=== PATIENT | male | born 1985 | race Caucasian/White ===

== ENCOUNTER 2019-11-04 10:16 | Inpatient (IN) | payer OTHER ==
[2019-11-04 10:58] VITALS: BMI 31.0
--- NOTE | 2019-11-04 11:30 | HP ---
Screened but not Admitted - Documentation of Visit Screened but not Admitted: Yes Left Prior to Completion of Assessment: Yes Insurance Authorization Denied: No Patient Does Not Meet Criteria for Admission: No Alternative Treatment/Detention Info Provided: No Additional Information/Explanation: Patient stated he was not ready to enter treatment due to an argument with his significant other. He was offered future treatment if he so chooses. Dr. May
--- NOTE | 2019-11-04 11:58 | HP ---
CIWA Score Nausea/Vomitin Muscle Tremors: 3 Anxiety: 3 Agitation: 3 Paroxysmal Sweats: 1-Minimal Palms Moist Orientation: 0-Oriented Tacttile Disturbances: 1-Very Mild Itch/Numbness Auditory Disturbances: 0-None Visual Disturbances: 0-None Headache: 2-Mild CIWA-Ar Total Score: 15 - Admission Criteria OASAS Guidelines: Admission for Medically Managed Detox: Requires at least one of the followin. CIWA greater than 12 2. Seizures within the past 24 hours 3. Delirium tremens within the past 24 hours 4. Hallucinations within the past 24 hours 5. Acute intervention needed for co occurring medical disorder 6. Acute intervention needed for co occurring psychiatric disorder 7. Severe withdrawal that cannot be handled at a lower level of care (continued vomiting, continued diarrhea, abnormal vital signs) requiring intravenous medication and/or fluids 8. 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 Dermatology: Yes: Other (rash bodies and extremities for 6 months) - Smoking History Smoking history: Current every day smoker Have you smoked in the past 12 months: Yes Aproximately how many cigarettes per day: 10 - Alcohol/Substance Use Hx Alcohol Use: Yes History of Substance Use: reports: Cocaine, Tranquilizers - Social History Usual Living Arrangement: Yes: Other (homeless) Occupation: unemployed History of Recent Travel: No Admission ROS [facility] - [place] [facility] Chief Complaint: i need help to stop drinking alcohol,cocaine,xanax,percocet,pcp Allergies/Adverse Reactions: Allergies Allergy/AdvReac Type Severity Reaction Status Date / Time No Known Allergies Allergy Verified 11/04/19 10:38 History of Present Illness: this 34 years old male with alcohol,cocaine,xanax,pcp,percocet abused, seeking help,first time for detox syncope denied seizure chronic rah in body and extremities for 6 months plan for rehab after detox Exam Limitations: No Limitations - Ebola screening Have you traveled outside of the country in the last 21 days: No Have you had contact with anyone from an Ebola affected area: No Do you have a fever: No - Review of Systems Constitutional: Loss of Appetite, Malaise, Night Sweats, Changes in sleep EENT: reports: Tearing, Nose Congestion Respiratory: reports: No Symptoms reported Cardiac: reports: No Symptoms Reported GI: reports: Diarrhea, Nausea, Poor Appetite : reports: No Symptoms Reported Musculoskeletal: reports: Back Pain, Muscle Pain Integumentary: reports: Dryness Neuro: reports: Headache, Tremors Endocrine: reports: No Symptoms Reported Hematology: reports: No Symptoms Reported Psychiatric: reports: No Sypmtoms Reported, Judgement Intact, Mood/Affect Appropiate, Orientated x3, Agitated Other Systems: Reviewed and Negative Patient History - Patient Medical History Hx Anemia: No Hx Asthma: No Hx Chronic Obstructive Pulmonary Disease (COPD): No Hx Cancer: No Hx Cardiac Disorders: No Hx Congestive Heart Failure: No Hx Hypertension: No Hx Hypercholesterolemia: No Hx Pacemaker: No HX Cerebrovascular Accident: No Hx Seizures: No Hx Dementia: No Hx Diabetes: No Hx Gastrointestinal Disorders: No Hx Liver Disease: No Hx Genitourinary Disorders: No Hx Sexually Transmitted Disorders: No Hx Renal Disease (ESRD): No Hx Thyroid Disease: No Hx Human Immunodeficiency Virus (HIV): No (last 08/21 negative) Hx Hepatitis C: No Hx Depression: No Hx Suicide Attempt: No Hx Bipolar Disorder: No Hx Schizophrenia: No Other Medical History: no suicidal,no honicidal - Patient Surgical History Past Surgical History: No - PPD History Previous Implant?: Yes Documented Results: Negative w/o proof Implanted On Prior R Admission?: No PPD to be Administered?: Yes - Smoking Cessation Smoking history: Current every day smoker Have you smoked in the past 12 months: Yes Aproximately how many cigarettes per day: 10 Cigars Per Day: 0 Hx Chewing Tobacco Use: No Initiated information on smoking cessation: Yes 'Breaking Loose' booklet given: 11/04/19 - Substance & Tx. History Hx Alcohol Use: Yes Hx Substance Use: Yes Substance Use Type: Alcohol, Cocaine, Marijuana Hx Substance Use Treatment: No - Substances abused Alcohol Frequency: Daily Amount used: 1 bottle of delores Age of first use: 15 Date of last use: 11/03/19 Other Other (specify): percocet Substance route: Oral Frequency: 1-2 times per week Amount used: 1 pill 10 gs Age of first use: 31 Date of last use: 11/03/19 Cocaine Substance route: Inhalation Frequency: 1-2 times per week Amount used: 1-3 gram Age of first use: 16 Date of last use: 10/28/19 Marijuana/Hashish Substance route: Smoking Frequency: Daily Amount used: 8th Age of first use: 16 Date of last use: 11/04/19 PCP Substance route: Smoking Frequency: 1-2 times per week Amount used: 100$ Age of first use: 16 Date of last use: 10/28/19 Admission Physical Exam [facility] - Vital Signs Vital Signs: Vital Signs - 24 hr 11/04/19 10:33 Temperature 97.0 F L Pulse Rate 88 Respiratory 20 Rate Blood Pressure 123/73 - Physical General Appearance: Yes: Moderate Distress, Tremorous, Irritable, Sweating, Anxious HEENTM: Yes: Normal ENT Inspection, AARTI, Pharynx Normal Respiratory: Yes: Within Normal Limits, Lungs Clear, Normal Breath Sounds Neck: Yes: Within Normal Limits, Supple, Trachea in good position Breast: Yes: Within Normal Limits Cardiology: Yes: Within Normal Limits, Regular Rhythm, Regular Rate, S1, S2 Abdominal: Yes: Normal Bowel Sounds, Non Tender, Flat, Soft Genitourinary: Yes: Within Normal Limits Back: Yes: Muscle Spasm Extremities: Yes: Tremors 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 NML intact, Fully Oriented, Alert, Motor Strength 5/5 Integumentary: Yes: Dry, Rash (itching) Lymphatic: Yes: Within Normal Limits - Diagnostic (1) Alcohol dependence with uncomplicated withdrawal Current Visit: Yes Status: Acute (2) Sedative abuse Current Visit: Yes Status: Acute (3) Cocaine abuse Current Visit: Yes Status: Acute (4) Cannabis dependence Current Visit: Yes Status: Acute (5) PCP (phencyclidine) abuse Current Visit: Yes Status: Acute (6) Opioid abuse Current Visit: Yes Status: Acute (7) Contact dermatitis Current Visit: Yes Status: Acute (8) Nicotine dependence Current Visit: Yes Status: Acute Cleared for Admission S - Detox or Rehab [facility] Level of Care: Medically Managed Detox Regimen/Protocol: Valium Inpatient Rehab Admission - Rehab Decision to Admit Inpatient rehab admission?: No
[2019-11-04] MEDS ORDERED: hydrOXYzine PAMOATE 25 MG CAPSULE (FP) PO PRN (12:12)
[2019-11-04] MEDS ORDERED: BISMUTH SUBSALICYLATE 262 MG/15 ML BTL PO PRN (12:12)
[2019-11-04] MEDS ORDERED: NICOTINE POLACRILEX 2 MG GUM BUC PRN (12:12)
[2019-11-04] MEDS ORDERED: MAG HYDROX/AL HYDROX/SIMETH 30 ML UNIT-DOSE CUP PO PRN (12:12)
[2019-11-04] MEDS ORDERED: METHOCARBAMOL 500 MG TABLET PO PRN (12:12)
[2019-11-04] MEDS ORDERED: IBUPROFEN 400 MG TABLET (FP) PO PRN (12:12)
[2019-11-04] MEDS ORDERED: ACETAMINOPHEN 325 MG TABLET (FP) PO PRN ×2 (12:12)
[2019-11-04] MEDS ORDERED: MAGNESIUM HYDROX 2400MG/30ML ORAL SUSPENSION 30 ML CUP PO PRN (12:12)
[2019-11-04] MEDS ORDERED: MAGNESIUM CITRATE 300 ML BOTTLE PO PRN (12:12)
[2019-11-04] MEDS ORDERED: MENTHOL/PHENOL 1 EACH UD MM PRN (12:12)
[2019-11-04] MEDS ORDERED: COLLOIDAL OATMEAL 1 BAR EACH TP PRN (12:16)
[2019-11-04] MEDS: diazePAM 5 MG TABLET PO SCH ×2 (13:02→22:25)
[2019-11-04] MEDS: NICOTINE 21 MG/24 HOURS TOPICAL PATCH TD SCH (13:03)
[2019-11-04 15:01] LABS: HEMATOCRIT 46.5 % (35.4-49); HEMOGLOBIN 15.6 GM/dL (11.7-16.9); MCH 30.9 pg (25.7-33.7); MCHC 33.6 g/dl (32.0-35.9); MEAN CELL VOLUME 91.9 fl (80-96); MEAN PLT VOLUME 9.6 fl (7.5-11.1); PLATELET COUNT 313 K/MM3 (134-434); RBC 5.06 M/mm3 (4.00-5.60); RDW 13.5 % (11.9-15.9); WHITE BLOOD COUNT 10.1 K/mm3 (4.0-10.0)
[2019-11-04 15:15] LABS: ALBUMIN 3.9 g/dl (3.4-5.0); BILIRUBIN,TOTAL 0.3 mg/dL (0.2-1); CREATININE 0.9 mg/dL (0.55-1.3); POTASSIUM 4.1 mmol/L (3.5-5.1); TOT PROT 7.3 g/dl (6.4-8.2)
[2019-11-04] MEDS: THIAMINE HCL 100 MG TABLET (FP) PO SCH (22:26)
[2019-11-04] MEDS: MELATONIN 5 MG TABLETS PO PRN (22:27)
[2019-11-04] MEDS: HYDROCORTISONE 0.5% TOPICAL CREAM 30 GM TUBE TP SCH (22:27)
[2019-11-05] MEDS: diazePAM 5 MG TABLET PO SCH ×3 (05:49→22:22)
[2019-11-05] MEDS: PRENATAL VITAMINS W/ FOLIC ACID TABLET (FP) PO SCH (09:41)
[2019-11-05] MEDS: diazePAM 5 MG TABLET PO PRN (09:42)
[2019-11-05] MEDS: NICOTINE 21 MG/24 HOURS TOPICAL PATCH TD SCH (09:43)
[2019-11-05] MEDS: HYDROCORTISONE 0.5% TOPICAL CREAM 30 GM TUBE TP SCH ×2 (09:43→22:22)
--- NOTE | 2019-11-05 11:06 | PN ---
[facility] CIWA - CIWA Score Nausea/Vomitin-No Nausea/No Vomiting Muscle Tremors: 2 Anxiety: 3 Agitation: 1-Slight > Activity Paroxysmal Sweats: 3 Orientation: 0-Oriented Tacttile Disturbances: 0-None Auditory Disturbances: 0-None Visual Disturbances: 0-None Headache: 2-Mild CIWA-Ar Total Score: 11 [facility] Progress Note (SOAP) Subjective: c/o headache, anxiety, sweats, and shakes. Objective: 11/05/19 11:05 Vital Signs 11/05/19 11/05/19 11/05/19 03:30 06:32 09:21 Temperature 97.1 F L 97.3 F L Pulse Rate 77 81 Respiratory 18 18 18 Rate Blood Pressure 132/73 118/83 Laboratory Last Values WBC 10.1 K/mm3 (4.0-10.0) H 11/04/19 12:15 RBC 5.06 M/mm3 (4.00-5.60) 11/04/19 12:15 Hgb 15.6 GM/dL (11.7-16.9) 11/04/19 12:15 Hct 46.5 % (35.4-49) 11/04/19 12:15 MCV 91.9 fl (80-96) 11/04/19 12:15 MCH 30.9 pg (25.7-33.7) 11/04/19 12:15 MCHC 33.6 g/dl (32.0-35.9) 11/04/19 12:15 RDW 13.5 % (11.9-15.9) 11/04/19 12:15 Plt Count 313 K/MM3 (134-434) 11/04/19 12:15 MPV 9.6 fl (7.5-11.1) 11/04/19 12:15 Sodium 138 mmol/L (136-145) 11/04/19 12:15 Potassium 4.1 mmol/L (3.5-5.1) 11/04/19 12:15 Chloride 107 mmol/L (98-107) 11/04/19 12:15 Carbon Dioxide 26 mmol/L (21-32) 11/04/19 12:15 Anion Gap 6 MMOL/L (8-16) L 11/04/19 12:15 BUN 12.0 mg/dL (7-18) 11/04/19 12:15 Creatinine 0.9 mg/dL (0.55-1.3) 11/04/19 12:15 Est GFR (CKD-EPI)AfAm 130.52 11/04/19 12:15 Est GFR (CKD-EPI)NonAf 112.62 11/04/19 12:15 Random Glucose 88 mg/dL (74-106) 11/04/19 12:15 Calcium 9.0 mg/dL (8.5-10.1) 11/04/19 12:15 Total Bilirubin 0.3 mg/dL (0.2-1) 11/04/19 12:15 AST 25 U/L (15-37) 11/04/19 12:15 ALT 33 U/L (13-61) 11/04/19 12:15 Alkaline Phosphatase 86 U/L (45-117) 11/04/19 12:15 Total Protein 7.3 g/dl (6.4-8.2) 11/04/19 12:15 Albumin 3.9 g/dl (3.4-5.0) 11/04/19 12:15 RPR Titer Nonreactive (NONREACTIVE) 11/04/19 12:15 HIV 1&2 Antibody Screen Negative 11/04/19 12:15 HIV P24 Antigen Negative 11/04/19 12:15 labs noted. Assessment: 11/05/19 11:05 AOX3, in no acute respiratory distress. Full ROM, ambulating in the unit. Withdrawal symptoms. Plan: continue detox.
[2019-11-05 15:28] LABS: URINE APPEARANCE CLEAR; URINE BILIRUBIN NEGATIVE (NEGATIVE); URINE COLOR YELLOW; URINE GLUCOSE (UA) NEGATIVE (NEGATIVE); URINE KETONE TRACE (NEGATIVE); URINE LEUK ESTERASE NEGATIVE (NEGATIVE); URINE NITRITE NEGATIVE (NEGATIVE); URINE PROTEIN NEGATIVE (NEGATIVE); URINE UROBILINOGEN 0.2 mg/dL (0.2-1.0)
[2019-11-05] MEDS: THIAMINE HCL 100 MG TABLET (FP) PO SCH (22:22)
[2019-11-05] MEDS: MELATONIN 5 MG TABLETS PO PRN (22:22)
[2019-11-06] MEDS: diazePAM 5 MG TABLET PO SCH ×2 (06:42→17:49)
[2019-11-06] MEDS: NICOTINE 21 MG/24 HOURS TOPICAL PATCH TD SCH (10:36)
[2019-11-06] MEDS: HYDROCORTISONE 0.5% TOPICAL CREAM 30 GM TUBE TP SCH ×2 (10:36→22:42)
[2019-11-06] MEDS: PRENATAL VITAMINS W/ FOLIC ACID TABLET (FP) PO SCH (10:36)
[2019-11-06] MEDS: diazePAM 5 MG TABLET PO PRN ×2 (10:38→23:04)
[2019-11-06] MEDS: diphenhydrAMINE HCL 25 MG CAPSULE (FP) PO PRN ×2 (10:39→22:18)
--- NOTE | 2019-11-06 12:02 | PN ---
S CIWA - CIWA Score Nausea/Vomitin-No Nausea/No Vomiting Muscle Tremors: None Anxiety: 2 Agitation: 0-Normal Activity Paroxysmal Sweats: 2 Orientation: 0-Oriented Tacttile Disturbances: 0-None Auditory Disturbances: 0-None Visual Disturbances: 0-None Headache: 2-Mild CIWA-Ar Total Score: 6 [facility] Progress Note (SOAP) Subjective: c/o mild sweats, anxiety, and headache. Objective: 11/06/19 12:01 Vital Signs 11/06/19 11/06/19 06:23 09:14 Temperature 97.1 F L 97.4 F L Pulse Rate 68 77 Respiratory 18 18 Rate Blood Pressure 118/70 93/62 Lab Results WBC 10.1 K/mm3 (4.0-10.0) H 11/04/19 12:15 RBC 5.06 M/mm3 (4.00-5.60) 11/04/19 12:15 Hgb 15.6 GM/dL (11.7-16.9) 11/04/19 12:15 Hct 46.5 % (35.4-49) 11/04/19 12:15 MCV 91.9 fl (80-96) 11/04/19 12:15 MCHC 33.6 g/dl (32.0-35.9) 11/04/19 12:15 RDW 13.5 % (11.9-15.9) 11/04/19 12:15 Plt Count 313 K/MM3 (134-434) 11/04/19 12:15 Sodium 138 mmol/L (136-145) 11/04/19 12:15 Potassium 4.1 mmol/L (3.5-5.1) 11/04/19 12:15 Chloride 107 mmol/L (98-107) 11/04/19 12:15 Carbon Dioxide 26 mmol/L (21-32) 11/04/19 12:15 Anion Gap 6 MMOL/L (8-16) L 11/04/19 12:15 BUN 12.0 mg/dL (7-18) 11/04/19 12:15 Creatinine 0.9 mg/dL (0.55-1.3) 11/04/19 12:15 Random Glucose 88 mg/dL (74-106) 11/04/19 12:15 Calcium 9.0 mg/dL (8.5-10.1) 11/04/19 12:15 Labs noted. Assessment: 11/06/19 12:01 AOX3, in no acute respiratory distress. Full ROM, ambulating in the unit. Withdrawal symptoms. For d/c tomorrow. 11/06/19 12:01 Plan: continue detox. D/C in AM.
[2019-11-06] MEDS: THIAMINE HCL 100 MG TABLET (FP) PO SCH (22:19)
[2019-11-06] MEDS: MELATONIN 5 MG TABLETS PO PRN (22:19)
[2019-11-07] MEDS ORDERED: diazePAM 5 MG TABLET PO ONE (06:00)
[2019-11-07] MEDS: HYDROCORTISONE 0.5% TOPICAL CREAM 30 GM TUBE TP SCH (10:05)
[2019-11-07] MEDS: NICOTINE 21 MG/24 HOURS TOPICAL PATCH TD SCH (10:05)
[2019-11-07] MEDS: PRENATAL VITAMINS W/ FOLIC ACID TABLET (FP) PO SCH (10:05)
--- NOTE | 2019-11-07 11:08 | DS ---
[facility] Detox Discharge Summary Admission Date: 11/04/19 Discharge Date: 11/07/19 - History Present History: Alcohol Dependence Additional Comments: 34 years old male admitted on 11/04/19 for alcohol withdrawal sx management treated wtih valium detox regimen completed the regimen tolerated well alert oriented x 3 respiratory clear lung bilaterally on auscultation skin warm and dry abdomen soft round obese no rebound tenderness - Physical Exam Results Vital Signs: Vital Signs Temperature 96.2 F L 11/07/19 09:26 Pulse Rate 68 11/07/19 09:26 Respiratory Rate 18 11/07/19 09:26 Blood Pressure 135/85 11/07/19 09:26 O2 Sat by Pulse Oximetry (%) Pertinent Admission Physical Exam Findings: alcohol withdrawal Laboratory Last Values WBC 10.1 K/mm3 (4.0-10.0) H 11/04/19 12:15 RBC 5.06 M/mm3 (4.00-5.60) 11/04/19 12:15 Hgb 15.6 GM/dL (11.7-16.9) 11/04/19 12:15 Hct 46.5 % (35.4-49) 11/04/19 12:15 MCV 91.9 fl (80-96) 11/04/19 12:15 MCH 30.9 pg (25.7-33.7) 11/04/19 12:15 MCHC 33.6 g/dl (32.0-35.9) 11/04/19 12:15 RDW 13.5 % (11.9-15.9) 11/04/19 12:15 Plt Count 313 K/MM3 (134-434) 11/04/19 12:15 MPV 9.6 fl (7.5-11.1) 11/04/19 12:15 Sodium 138 mmol/L (136-145) 11/04/19 12:15 Potassium 4.1 mmol/L (3.5-5.1) 11/04/19 12:15 Chloride 107 mmol/L (98-107) 11/04/19 12:15 Carbon Dioxide 26 mmol/L (21-32) 11/04/19 12:15 Anion Gap 6 MMOL/L (8-16) L 11/04/19 12:15 BUN 12.0 mg/dL (7-18) 11/04/19 12:15 Creatinine 0.9 mg/dL (0.55-1.3) 11/04/19 12:15 Est GFR (CKD-EPI)AfAm 130.52 11/04/19 12:15 Est GFR (CKD-EPI)NonAf 112.62 11/04/19 12:15 Random Glucose 88 mg/dL (74-106) 11/04/19 12:15 Calcium 9.0 mg/dL (8.5-10.1) 11/04/19 12:15 Total Bilirubin 0.3 mg/dL (0.2-1) 11/04/19 12:15 AST 25 U/L (15-37) 11/04/19 12:15 ALT 33 U/L (13-61) 11/04/19 12:15 Alkaline Phosphatase 86 U/L (45-117) 11/04/19 12:15 Total Protein 7.3 g/dl (6.4-8.2) 11/04/19 12:15 Albumin 3.9 g/dl (3.4-5.0) 11/04/19 12:15 Urine Color Yellow 11/05/19 12:00 Urine Appearance Clear 11/05/19 12:00 Urine pH 5.0 (5.0-8.0) 11/05/19 12:00 Ur Specific Barton 1.033 (1.010-1.035) 11/05/19 12:00 Urine Protein Negative (NEGATIVE) 11/05/19 12:00 Urine Glucose (UA) Negative (NEGATIVE) 11/05/19 12:00 Urine Ketones Trace (NEGATIVE) H 11/05/19 12:00 Urine Blood Negative (NEGATIVE) 11/05/19 12:00 Urine Nitrite Negative (NEGATIVE) 11/05/19 12:00 Urine Bilirubin Negative (NEGATIVE) 11/05/19 12:00 Urine Urobilinogen 0.2 mg/dL (0.2-1.0) 11/05/19 12:00 Ur Leukocyte Esterase Negative (NEGATIVE) 11/05/19 12:00 RPR Titer Nonreactive (NONREACTIVE) 11/04/19 12:15 HIV 1&2 Antibody Screen Negative 11/04/19 12:15 HIV P24 Antigen Negative 11/04/19 12:15 lab noted Vital Signs Temperature 96.2 F L 11/07/19 09:26 Pulse Rate 68 11/07/19 09:26 Respiratory Rate 18 11/07/19 09:26 Blood Pressure 135/85 11/07/19 09:26 O2 Sat by Pulse Oximetry (%) - Treatment Hospital Course: Detox Protocol Followed, Detoxed Safely, Responded well, Discharged Condition Good, Rehab Referral Accepted Patient has Accepted a Rehab Referral to: [facility] - Medication Discharge Medications: Ambulatory Orders NK [No Known Home Medication] 11/04/19 - Diagnosis (1) Obesity Current Visit: Yes Status: Chronic Qualifiers: Obesity type: due to excess calories Obesity classification: adult class 1 (BMI 30 - 34.9) Serious obesity comorbidity presence: unspecified whether serious comorbidity present Body mass index: BMI 31.0-31.9 Qualified Code(s) : E66.09 - Other obesity due to excess calories; Z68.31 - Body mass index (BMI) 31.0-31.9, adult (2) Alcohol dependence with uncomplicated withdrawal Current Visit: Yes Status: Acute (3) Nicotine dependence Current Visit: Yes Status: Acute Qualifiers: Nicotine product type: cigarettes Substance use status: in withdrawal Qualified Code(s): F17.213 - Nicotine dependence, cigarettes, with withdrawal - AMA Did Patient Leave Against Medical Advice: No CIWA Score - CIWA Score Nausea/Vomitin-No Nausea/No Vomiting Muscle Tremors: None Anxiety: 1-Mildly Anxious Agitation: 0-Normal Activity Paroxysmal Sweats: 1-Minimal Palms Moist Orientation: 0-Oriented Tacttile Disturbances: 0-None Auditory Disturbances: 0-None Visual Disturbances: 0-None Headache: 1-Very Mild CIWA-Ar Total Score: 3
[2019-11-07 13:11] VITALS: BP 128/81; PULSE 81; TEMP 96.5
== END 2019-11-07 13:58 | disposition other institution (70) | DRG 773 ==
LOC: YASAS 10:16 → Y3N 12:14
PROVIDERS: ADMIT Allergy & Immunology; ATTEND Allergy & Immunology
PROC: HZ2ZZZZ Detoxification Services for Substance Abuse Treatment (ICD-10-PCS; principal; 2019-11-04)
DX: F10.230 Alcohol dependence with withdrawal, uncomplicated (principal); F11.10 Opioid abuse, uncomplicated; F13.10 Sedative, hypnotic or anxiolytic abuse, uncomplicated; F16.10 Hallucinogen abuse, uncomplicated; F14.10 Cocaine abuse, uncomplicated; F12.10 Cannabis abuse, uncomplicated; F17.213 Nicotine dependence, cigarettes, with withdrawal; R21 Rash and other nonspecific skin eruption; L25.9 Unspecified contact dermatitis, unspecified cause; E66.01 Morbid (severe) obesity due to excess calories; Z68.31 Body mass index [BMI] 31.0-31.9, adult; Z56.0 Unemployment, unspecified; Z59.0 Homelessness
CPT/HCPCS: 36415; 80053; 81003; 85027; 86593; 87389

== ENCOUNTER 2019-11-07 15:06 | Inpatient (IN) | payer OTHER ==
--- NOTE | 2019-11-07 11:13 | HP ---
[facility] Rehab Assess/Revision - Admission History Admitted to Rehab from: [facility] Date of Admission to Rehab: 11/07/19 - Findings Detox History & Physical reviewed: Yes Concur with findings: Yes Comments/Additional Findings: transferred from detox to rehab admission as per protocol Inpatient Rehab Admission - Rehab Decision to Admit Inpatient rehab admission?: Yes - Initial Determination Are CD services needed?: Yes Free of communicable disease: Yes Not in need of hospitalization: Yes - Rehab Admission Criteria Previous failed treatment: Yes Poor recovery environment: Yes Comorbidities: Yes Lacks judgement: Yes Patient is meeting Inpatient Rehab admission criteria:: Yes
[~2019-11-07 15:06] MED LIST: ACETAMINOPHEN 325 MG TABLET (FP) PO PRN; IBUPROFEN 400 MG TABLET (FP) PO PRN; LOPERAMIDE HCL 2 MG CAPSULE PO PRN; MAG HYDROX/AL HYDROX/SIMETH 30 ML UNIT-DOSE CUP PO PRN; MAGNESIUM CITRATE 300 ML BOTTLE PO PRN; MAGNESIUM HYDROX 2400MG/30ML ORAL SUSPENSION 30 ML CUP PO PRN; MENTHOL/PHENOL 1 EACH UD MM PRN; P-EPHED 60MG/TRIPROLIDI 2.5MG TABLET PO PRN; guaiFENesin 200 MG/10 ML 10 ML UNIT-DOSE CUPS PO PRN
[2019-11-07] MEDS: MELATONIN 5 MG TABLETS PO PRN (21:19)
[2019-11-07] MEDS: THIAMINE HCL 100 MG TABLET (FP) PO SCH (21:21)
[2019-11-07] MEDS: diphenhydrAMINE HCL 25 MG CAPSULE (FP) PO PRN (21:22)
[2019-11-08] MEDS: HYDROCORTISONE 1% TOPICAL CREAM 30 GM TUBE TP SCH ×6 (00:17→21:49)
[2019-11-08] MEDS ORDERED: SUVOREXANT 10 MG TABLET PO PRN (09:28)
--- NOTE | 2019-11-08 09:59 | PN ---
[facility] Progress Note Note: This 34 years old male with hx of alcohol,cocaine ,xanax dependence,pcp, percocet dependence. Completed detox 11/07/2019 and admitted to rehab at [facility] on same day. ROS: c/o insomnia and fungal rash to feet, denies shakes, sweating and n/v/d. PE: alert and oriented x 3 skin warm and dry +perrla, eoms intact bl gi nt, nd ext no tremors, amb ad aditya A/P: alcohol/cocaine/sedative/opiod dependence insomnia will start Belsomra 10mg hs tinactin cream continue to monitor clinically Vital Signs Period Temp Pulse Resp BP Sys/Ruggiero Pulse Ox Last 24 Hr 97.3 F-98.2 F 73-75 18-18 114-118/70-73
[2019-11-08] MEDS: PRENATAL VITAMINS W/ FOLIC ACID TABLET (FP) PO SCH (10:05)
[2019-11-08] MEDS: NICOTINE 21 MG/24 HOURS TOPICAL PATCH TD SCH (10:08)
--- NOTE | 2019-11-08 13:23 | EKG ---
Test Reason : Blood Pressure : / mmHG Vent. Rate : 073 BPM Atrial Rate : 073 BPM P-R Int : 172 ms QRS Dur : 090 ms QT Int : 388 ms P-R-T Axes : 056 072 059 degrees QTc Int : 427 ms NORMAL SINUS RHYTHM NORMAL ECG NO PREVIOUS ECGS AVAILABLE Confirmed by ALBANIA WORKMAN MD ([id number]) on 11/08/2019 1:22:54 PM Referred By: Asa May Confirmed By:ALBANIA WORKMAN MD
[2019-11-08] MEDS: THIAMINE HCL 100 MG TABLET (FP) PO SCH (21:04)
[2019-11-08] MEDS: MELATONIN 5 MG TABLETS PO PRN (21:04)
[2019-11-08] MEDS: TOLNAFTATE 1% CREAM 15 GM TUBE TP SCH (21:05)
[2019-11-09] MEDS: PRENATAL VITAMINS W/ FOLIC ACID TABLET (FP) PO SCH (10:11)
[2019-11-09] MEDS: HYDROCORTISONE 1% TOPICAL CREAM 30 GM TUBE TP SCH ×4 (10:11→21:38)
[2019-11-09] MEDS: NICOTINE 21 MG/24 HOURS TOPICAL PATCH TD SCH (10:11)
[2019-11-09] MEDS: TOLNAFTATE 1% CREAM 15 GM TUBE TP SCH ×2 (10:12→21:37)
[2019-11-09] MEDS: NICOTINE POLACRILEX 2 MG GUM BUC PRN (11:13)
[2019-11-09] MEDS: MELATONIN 5 MG TABLETS PO PRN (21:36)
[2019-11-09] MEDS: THIAMINE HCL 100 MG TABLET (FP) PO SCH (21:36)
[2019-11-10] MEDS: PRENATAL VITAMINS W/ FOLIC ACID TABLET (FP) PO SCH (10:30)
[2019-11-10] MEDS: HYDROCORTISONE 1% TOPICAL CREAM 30 GM TUBE TP SCH ×4 (10:31→21:45)
[2019-11-10] MEDS: TOLNAFTATE 1% CREAM 15 GM TUBE TP SCH ×2 (10:31→21:06)
[2019-11-10] MEDS: NICOTINE 21 MG/24 HOURS TOPICAL PATCH TD SCH (10:31)
[2019-11-10] MEDS: COLLOIDAL OATMEAL 1 BAR EACH TP PRN (10:36)
[2019-11-10] MEDS: MELATONIN 5 MG TABLETS PO PRN (21:05)
[2019-11-10] MEDS: THIAMINE HCL 100 MG TABLET (FP) PO SCH (21:05)
[2019-11-11] MEDS: HYDROCORTISONE 1% TOPICAL CREAM 30 GM TUBE TP SCH ×4 (10:58→21:38)
[2019-11-11] MEDS: PRENATAL VITAMINS W/ FOLIC ACID TABLET (FP) PO SCH (10:58)
[2019-11-11] MEDS: TOLNAFTATE 1% CREAM 15 GM TUBE TP SCH ×2 (10:59→21:38)
[2019-11-11] MEDS: NICOTINE 21 MG/24 HOURS TOPICAL PATCH TD SCH (10:59)
[2019-11-11] MEDS: THIAMINE HCL 100 MG TABLET (FP) PO SCH (21:36)
[2019-11-11] MEDS: MELATONIN 5 MG TABLETS PO PRN (21:36)
[2019-11-11] MEDS: diphenhydrAMINE HCL 25 MG CAPSULE (FP) PO PRN (21:37)
[2019-11-12] MEDS: PRENATAL VITAMINS W/ FOLIC ACID TABLET (FP) PO SCH (10:19)
[2019-11-12] MEDS: NICOTINE 21 MG/24 HOURS TOPICAL PATCH TD SCH (10:19)
[2019-11-12] MEDS: HYDROCORTISONE 1% TOPICAL CREAM 30 GM TUBE TP SCH ×4 (10:20→21:36)
[2019-11-12] MEDS: TOLNAFTATE 1% CREAM 15 GM TUBE TP SCH ×2 (10:20→21:36)
[2019-11-12] MEDS: NICOTINE POLACRILEX 2 MG GUM BUC PRN ×2 (10:39→14:31)
[2019-11-12] MEDS: MELATONIN 5 MG TABLETS PO SCH (21:35)
[2019-11-12] MEDS: THIAMINE HCL 100 MG TABLET (FP) PO SCH (21:35)
[2019-11-13] MEDS: PRENATAL VITAMINS W/ FOLIC ACID TABLET (FP) PO SCH (10:05)
[2019-11-13] MEDS: HYDROCORTISONE 1% TOPICAL CREAM 30 GM TUBE TP SCH ×4 (10:06→21:15)
[2019-11-13] MEDS: diphenhydrAMINE HCL 25 MG CAPSULE (FP) PO PRN ×2 (10:06→21:14)
[2019-11-13] MEDS: TOLNAFTATE 1% CREAM 15 GM TUBE TP SCH ×2 (10:07→21:14)
[2019-11-13] MEDS: COLLOIDAL OATMEAL 1 BAR EACH TP PRN (10:09)
[2019-11-13] MEDS: NICOTINE 21 MG/24 HOURS TOPICAL PATCH TD SCH (10:19)
[2019-11-13] MEDS: MELATONIN 5 MG TABLETS PO SCH (21:14)
[2019-11-13] MEDS: THIAMINE HCL 100 MG TABLET (FP) PO SCH (21:14)
[2019-11-14] MEDS: HYDROCORTISONE 1% TOPICAL CREAM 30 GM TUBE TP SCH ×4 (09:59→21:38)
[2019-11-14] MEDS: PRENATAL VITAMINS W/ FOLIC ACID TABLET (FP) PO SCH (09:59)
[2019-11-14] MEDS: diphenhydrAMINE HCL 25 MG CAPSULE (FP) PO PRN ×2 (09:59→21:12)
[2019-11-14] MEDS: TOLNAFTATE 1% CREAM 15 GM TUBE TP SCH ×2 (10:00→21:03)
[2019-11-14] MEDS: NICOTINE 21 MG/24 HOURS TOPICAL PATCH TD SCH (10:00)
[2019-11-14] MEDS: THIAMINE HCL 100 MG TABLET (FP) PO SCH (21:01)
[2019-11-14] MEDS: MELATONIN 5 MG TABLETS PO SCH (21:01)
[2019-11-15] MEDS: HYDROCORTISONE 1% TOPICAL CREAM 30 GM TUBE TP SCH ×4 (10:29→21:02)
[2019-11-15] MEDS: NICOTINE 21 MG/24 HOURS TOPICAL PATCH TD SCH (10:29)
[2019-11-15] MEDS: PRENATAL VITAMINS W/ FOLIC ACID TABLET (FP) PO SCH (10:30)
[2019-11-15] MEDS: TOLNAFTATE 1% CREAM 15 GM TUBE TP SCH ×2 (11:30→21:03)
--- NOTE | 2019-11-15 13:09 | PN ---
S Progress Note Note: Patient c/o insomnia due to itching/rash. Was placed on Belsomra 10mg hs, however, may have fallen off profile. Will reorder medication. Continue current treatment with Benadryl and hydrocortisone for pruritic rash. Vital Signs Temperature 97.5 F L 11/15/19 07:05 Pulse Rate 69 11/15/19 07:05 Respiratory Rate 18 11/15/19 07:05 Blood Pressure 108/70 11/15/19 07:05 O2 Sat by Pulse Oximetry (%)
[2019-11-15] MEDS: MELATONIN 5 MG TABLETS PO SCH (21:03)
[2019-11-15] MEDS: THIAMINE HCL 100 MG TABLET (FP) PO SCH (21:03)
[2019-11-15] MEDS: COLLOIDAL OATMEAL 1 BAR EACH TP PRN (21:04)
[2019-11-15] MEDS: diphenhydrAMINE HCL 25 MG CAPSULE (FP) PO PRN (21:04)
[2019-11-15] MEDS ORDERED: SUVOREXANT 10 MG TABLET PO PRN (22:00)
--- NOTE | 2019-11-16 10:21 | PN ---
S Progress Note Note: Pt seen today for rash. Pt states he has had this rash for years-at least 8-10 years. Says he tries to control it with creams. Says he has not seen a energy economist even though he has had this for a long time. Says rash gets worse during winter. HAs been here for 2 weeks- rash not better. O: Vital Signs - 24 hr 11/16/19 11/16/19 11/16/19 00:30 03:30 07:07 Temperature 98.4 F Pulse Rate 80 Respiratory 20 18 18 Rate Blood Pressure 138/73 a/p: continue rehab from PCP/alcohol/MJ R/o Gluten related rash- pt given info re gluten free foods gluten free diet ordred pt wants to see MH for depression
[2019-11-16] MEDS: TOLNAFTATE 1% CREAM 15 GM TUBE TP SCH ×2 (10:27→21:39)
[2019-11-16] MEDS: NICOTINE 21 MG/24 HOURS TOPICAL PATCH TD SCH (10:27)
[2019-11-16] MEDS: PRENATAL VITAMINS W/ FOLIC ACID TABLET (FP) PO SCH (10:27)
[2019-11-16] MEDS: HYDROCORTISONE 1% TOPICAL CREAM 30 GM TUBE TP SCH ×4 (10:27→21:37)
[2019-11-16] MEDS: MELATONIN 5 MG TABLETS PO SCH (21:34)
[2019-11-16] MEDS: THIAMINE HCL 100 MG TABLET (FP) PO SCH (21:34)
[2019-11-16] MEDS: diphenhydrAMINE HCL 25 MG CAPSULE (FP) PO PRN (21:36)
[2019-11-17] MEDS: PRENATAL VITAMINS W/ FOLIC ACID TABLET (FP) PO SCH (10:43)
[2019-11-17] MEDS: TOLNAFTATE 1% CREAM 15 GM TUBE TP SCH ×2 (10:44→21:04)
[2019-11-17] MEDS: HYDROCORTISONE 1% TOPICAL CREAM 30 GM TUBE TP SCH ×4 (10:44→21:05)
[2019-11-17] MEDS: NICOTINE 21 MG/24 HOURS TOPICAL PATCH TD SCH (10:45)
--- NOTE | 2019-11-17 13:07 | CONSULT ---
[facility] Psychiatric Consult - Data Date of interview: 11/17/19 Admission source: 6N Identifying data: Mr Quiroz is a 34 years old single male, unemployed, homeless admitted from detox on 11/07/19 for inpatient rehabilitation for alcohol , opioid, cocaine, cannabis, benzodiazepine and phencyclidine Substance Abuse History: Reportds history of alcohol, percocet, cocaine, xanax, marijuana and pcp use. Refer to addiction counselor's summary for further information Medical History: Unremarkable except for contact dermatitis and obesity. Smokes 10 cigarettes daily Psychiatric History: Denies history of previous psychiatric treatment. However, reports feeling depressed and sleeping poorly. 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 He said everything started at age 15 when his mother . He said this has affected him adversely. He started using drug and making the wrong choices. He said that he has served time in long-term where life was very difficult for him. He admitted having an anger issue. Physical/Sexual Abuse/Trauma History: Denies history of abuse as a child or DV relationship as an adult Mental Status Exam - Mental Status Exam Alert and Oriented to: Time, Place, Person Cognitive Function: Fair Patient Appearance: Well Groomed Mood: Depressed Affect: Appropriate Patient Behavior: Cooperative Speech Pattern: Clear Voice Loudness: Normal Thought Process: Intact, Goal Oriented Hallucinations: Denies Suicidal Ideation: Denies Homicidal Ideation: Denies Insight/Judgement: Fair Sleep: Poorly Appetite: Fair Muscle strength/Tone: Normal Gait/Station: Normal Psychiatric Findings - Problem List ([place] 1, 2,3) (1) Substance induced mood disorder Current Visit: Yes Status: Acute (2) Substance-induced sleep disorder Current Visit: Yes Status: Acute (3) Alcohol dependence Current Visit: Yes Status: Acute (4) Cannabis dependence Current Visit: No Status: Acute (5) Cocaine abuse Current Visit: No Status: Acute (6) Opioid abuse Current Visit: No Status: Acute (7) PCP (phencyclidine) abuse Current Visit: No Status: Acute (8) Nicotine dependence Current Visit: No Status: Chronic Qualifiers: Nicotine product type: cigarettes Substance use status: in withdrawal Qualified Code(s): F17.213 - Nicotine dependence, cigarettes, with withdrawal (9) Contact dermatitis Current Visit: No Status: Acute (10) Obesity Current Visit: No Status: Chronic Qualifiers: Obesity type: due to excess calories Obesity classification: adult class 1 (BMI 30 - 34.9) Serious obesity comorbidity presence: unspecified whether serious comorbidity present Body mass index: BMI 31.0-31.9 Qualified Code(s) : E66.09 - Other obesity due to excess calories; Z68.31 - Body mass index (BMI) 31.0-31.9, adult - Initial Treatment Plan Initial Treatment Plan: 1) Start Belsomra 20 mg po HS prn for insomnia. 2) Continue inpatient rehabilitation
[2019-11-17] MEDS: MELATONIN 5 MG TABLETS PO SCH (21:01)
[2019-11-17] MEDS: THIAMINE HCL 100 MG TABLET (FP) PO SCH (21:01)
[2019-11-17] MEDS: diphenhydrAMINE HCL 25 MG CAPSULE (FP) PO PRN (21:01)
[2019-11-17] MEDS: SUVOREXANT 10 MG TABLET PO PRN (21:03)
[2019-11-18] MEDS: PRENATAL VITAMINS W/ FOLIC ACID TABLET (FP) PO SCH (10:44)
[2019-11-18] MEDS: NICOTINE 21 MG/24 HOURS TOPICAL PATCH TD SCH (10:45)
[2019-11-18] MEDS: HYDROCORTISONE 1% TOPICAL CREAM 30 GM TUBE TP SCH ×4 (10:45→21:32)
[2019-11-18] MEDS: TOLNAFTATE 1% CREAM 15 GM TUBE TP SCH ×2 (10:45→21:31)
[2019-11-18] MEDS: NICOTINE POLACRILEX 2 MG GUM BUC PRN (10:46)
[2019-11-18] MEDS: COLLOIDAL OATMEAL 1 BAR EACH TP PRN (10:47)
[2019-11-18] MEDS: THIAMINE HCL 100 MG TABLET (FP) PO SCH (21:29)
[2019-11-18] MEDS: MELATONIN 5 MG TABLETS PO SCH (21:29)
[2019-11-18] MEDS: diphenhydrAMINE HCL 25 MG CAPSULE (FP) PO PRN (21:30)
[2019-11-18] MEDS: SUVOREXANT 10 MG TABLET PO PRN (21:31)
[2019-11-19] MEDS: PRENATAL VITAMINS W/ FOLIC ACID TABLET (FP) PO SCH (09:57)
[2019-11-19] MEDS: NICOTINE 21 MG/24 HOURS TOPICAL PATCH TD SCH (09:57)
[2019-11-19] MEDS: TOLNAFTATE 1% CREAM 15 GM TUBE TP SCH ×2 (09:59→21:02)
[2019-11-19] MEDS: HYDROCORTISONE 1% TOPICAL CREAM 30 GM TUBE TP SCH ×4 (09:59→21:02)
[2019-11-19] MEDS: COLLOIDAL OATMEAL 1 BAR EACH TP PRN (14:03)
[2019-11-19] MEDS: MELATONIN 5 MG TABLETS PO SCH (21:02)
[2019-11-19] MEDS: THIAMINE HCL 100 MG TABLET (FP) PO SCH (21:02)
[2019-11-19] MEDS: diphenhydrAMINE HCL 25 MG CAPSULE (FP) PO PRN (21:02)
[2019-11-19] MEDS: SUVOREXANT 10 MG TABLET PO PRN (21:03)
[2019-11-20] MEDS: TOLNAFTATE 1% CREAM 15 GM TUBE TP SCH (10:15)
[2019-11-20] MEDS: NICOTINE 21 MG/24 HOURS TOPICAL PATCH TD SCH (10:15)
[2019-11-20] MEDS: HYDROCORTISONE 1% TOPICAL CREAM 30 GM TUBE TP SCH ×4 (10:15→21:33)
[2019-11-20] MEDS: PRENATAL VITAMINS W/ FOLIC ACID TABLET (FP) PO SCH (10:15)
[2019-11-20] MEDS: NICOTINE POLACRILEX 2 MG GUM BUC PRN (10:17)
[2019-11-20] MEDS: SUVOREXANT 10 MG TABLET PO PRN (21:34)
[2019-11-20] MEDS: THIAMINE HCL 100 MG TABLET (FP) PO SCH (21:34)
[2019-11-20] MEDS: MELATONIN 5 MG TABLETS PO SCH (21:34)
--- NOTE | 2019-11-21 10:31 | PN ---
[facility] Progress Note Note: Psychiatric nurse practitioner note: Belsomra 10mg renewed x3 days. Verbal consent given.
[2019-11-21] MEDS: PRENATAL VITAMINS W/ FOLIC ACID TABLET (FP) PO SCH (10:47)
[2019-11-21] MEDS: HYDROCORTISONE 1% TOPICAL CREAM 30 GM TUBE TP SCH ×4 (10:47→21:51)
[2019-11-21] MEDS: NICOTINE 21 MG/24 HOURS TOPICAL PATCH TD SCH (10:47)
[2019-11-21] MEDS: TOLNAFTATE 1% CREAM 15 GM TUBE TP SCH ×3 (10:47→21:51)
[2019-11-21] MEDS: MELATONIN 5 MG TABLETS PO SCH (21:50)
[2019-11-21] MEDS: COLLOIDAL OATMEAL 1 BAR EACH TP PRN (21:50)
[2019-11-21] MEDS: SUVOREXANT 10 MG TABLET PO PRN (21:50)
[2019-11-21] MEDS: THIAMINE HCL 100 MG TABLET (FP) PO SCH (21:50)
[2019-11-21] MEDS: diphenhydrAMINE HCL 25 MG CAPSULE (FP) PO PRN (21:53)
[2019-11-22] MEDS: NICOTINE 21 MG/24 HOURS TOPICAL PATCH TD SCH (10:55)
[2019-11-22] MEDS: PRENATAL VITAMINS W/ FOLIC ACID TABLET (FP) PO SCH (10:57)
[2019-11-22] MEDS: HYDROCORTISONE 1% TOPICAL CREAM 30 GM TUBE TP SCH ×4 (10:57→21:43)
[2019-11-22] MEDS: TOLNAFTATE 1% CREAM 15 GM TUBE TP SCH ×2 (10:57→21:43)
[2019-11-22] MEDS: NICOTINE POLACRILEX 2 MG GUM BUC PRN (10:59)
[2019-11-22] MEDS: THIAMINE HCL 100 MG TABLET (FP) PO SCH (21:40)
[2019-11-22] MEDS: MELATONIN 5 MG TABLETS PO SCH (21:40)
[2019-11-22] MEDS: diphenhydrAMINE HCL 25 MG CAPSULE (FP) PO PRN (21:41)
[2019-11-22] MEDS: SUVOREXANT 10 MG TABLET PO PRN (21:41)
[2019-11-23 07:04] VITALS: BP 128/88; PULSE 76; TEMP 97.3
== END 2019-11-23 09:05 | disposition home or self-care (01) | DRG 772 ==
LOC: YASAS 15:06 → Y3W 15:10
PROVIDERS: ADMIT Neuromusculoskeletal Medicine & OMM; ATTEND Neuromusculoskeletal Medicine & OMM
PROC: HZ42ZZZ Group Counseling for Substance Abuse Treatment, Cognitive-Behavioral (ICD-10-PCS; principal; 2019-11-07)
DX: F10.20 Alcohol dependence, uncomplicated (principal); F14.20 Cocaine dependence, uncomplicated; F12.20 Cannabis dependence, uncomplicated; F11.10 Opioid abuse, uncomplicated; F16.10 Hallucinogen abuse, uncomplicated; F17.213 Nicotine dependence, cigarettes, with withdrawal; F19.24 Other psychoactive substance dependence with psychoactive substance-induced mood disorder; F19.282 Other psychoactive substance dependence with psychoactive substance-induced sleep disorder; L25.9 Unspecified contact dermatitis, unspecified cause; G47.00 Insomnia, unspecified; B35.3 Tinea pedis; E66.9 Obesity, unspecified; Z68.21 Body mass index [BMI] 21.0-21.9, adult
CPT/HCPCS: 93005; 93010

== ENCOUNTER 2020-10-14 09:50 | Inpatient (IN) | payer OTHER ==
[2020-10-14 12:39] VITALS: BMI 27.8
[2020-10-14] MEDS ORDERED: ACETAMINOPHEN 325 MG TABLET (FP) PO PRN (21:01)
[2020-10-14] MEDS ORDERED: IBUPROFEN 400 MG TABLET (FP) PO PRN (21:01)
[2020-10-14] MEDS ORDERED: MAGNESIUM HYDROX 2400MG/30ML ORAL SUSPENSION 30 ML CUP PO PRN (21:01)
[2020-10-14] MEDS ORDERED: MAG HYDROX/AL HYDROX/SIMETH 30 ML UNIT-DOSE CUP PO PRN (21:01)
[2020-10-14] MEDS ORDERED: LOPERAMIDE HCL 2 MG CAPSULE PO PRN (21:01)
[2020-10-14] MEDS ORDERED: MAGNESIUM CITRATE 300 ML BOTTLE PO PRN (21:01)
[2020-10-14] MEDS ORDERED: guaiFENesin 200 MG/10 ML 10 ML UNIT-DOSE CUPS PO PRN (21:01)
[2020-10-14] MEDS ORDERED: P-EPHED 60MG/TRIPROLIDI 2.5MG TABLET PO PRN (21:01)
[2020-10-14] MEDS ORDERED: hydrOXYzine PAMOATE 25 MG CAPSULE (FP) PO PRN (21:02)
[2020-10-14] MEDS: MELATONIN 5 MG TABLETS PO SCH (22:09)
[2020-10-14] MEDS: THIAMINE HCL 100 MG TABLET (FP) PO SCH (22:09)
[2020-10-14] MEDS ORDERED: TUBERCULIN PPD 5 TU/0.1ML VIAL ID ONE (22:11)
[2020-10-15 09:22] LABS: HEMATOCRIT 45.8 % (35.4-49); HEMOGLOBIN 15.1 GM/dL (11.7-16.9); MCH 30.6 pg (25.7-33.7); MEAN CELL VOLUME 92.8 fl (80-96); PLATELET COUNT 260 K/MM3 (134-434); RBC 4.93 M/mm3 (4.00-5.60); RDW 12.9 % (11.9-15.9); WHITE BLOOD COUNT 6.1 K/mm3 (4.0-10.0)
[2020-10-15 09:23] LABS: CALCIUM 8.9 mg/dL (8.5-10.1)
[2020-10-15 09:23] LABS: URINE APPEARANCE CLEAR; URINE BILIRUBIN NEGATIVE (NEGATIVE); URINE COLOR YELLOW; URINE GLUCOSE (UA) NEGATIVE (NEGATIVE); URINE KETONE NEGATIVE (NEGATIVE); URINE LEUK ESTERASE NEGATIVE (NEGATIVE); URINE NITRITE NEGATIVE (NEGATIVE); URINE PROTEIN NEGATIVE (NEGATIVE); URINE UROBILINOGEN 0.2 mg/dL (0.2-1.0)
[2020-10-15 09:24] LABS: ALBUMIN 3.5 g/dl (3.4-5.0); BLOOD UREA NITROGEN 12.3 mg/dL (7-18)
[2020-10-15 09:27] LABS: CREATININE 0.8 mg/dL (0.55-1.3)
[2020-10-15 09:29] LABS: TOT PROT 6.2 g/dl (6.4-8.2)
[2020-10-15] MEDS: PRENATAL VITAMINS W/ FOLIC ACID TABLET (FP) PO SCH (09:47)
[2020-10-15] MEDS: NICOTINE 21 MG/24 HOURS TOPICAL PATCH TD SCH (09:47)
[2020-10-15 11:26] LABS: SICKLE CELL SCREEN NEGATIVE (NEGATIVE)
[2020-10-15] MEDS: THIAMINE HCL 100 MG TABLET (FP) PO SCH (21:41)
[2020-10-15] MEDS: MELATONIN 5 MG TABLETS PO SCH (21:41)
[2020-10-16] MEDS: NICOTINE 21 MG/24 HOURS TOPICAL PATCH TD SCH (10:20)
[2020-10-16] MEDS: PRENATAL VITAMINS W/ FOLIC ACID TABLET (FP) PO SCH (10:20)
[2020-10-16] MEDS: THIAMINE HCL 100 MG TABLET (FP) PO SCH (21:46)
[2020-10-16] MEDS: MELATONIN 5 MG TABLETS PO SCH (21:46)
[2020-10-16] MEDS: AMMONIUM LACTATE 12% LOTION 225 GM BOTTLE TP SCH (21:46)
[2020-10-17] MEDS: AMMONIUM LACTATE 12% LOTION 225 GM BOTTLE TP SCH ×2 (10:09→21:32)
[2020-10-17] MEDS: PRENATAL VITAMINS W/ FOLIC ACID TABLET (FP) PO SCH (12:10)
[2020-10-17] MEDS: NICOTINE 21 MG/24 HOURS TOPICAL PATCH TD SCH (12:10)
[2020-10-17] MEDS: COLLOIDAL OATMEAL 1 BAR EACH TP PRN (12:11)
[2020-10-17] MEDS: THIAMINE HCL 100 MG TABLET (FP) PO SCH (21:31)
[2020-10-17] MEDS: MELATONIN 5 MG TABLETS PO SCH (21:31)
[2020-10-18] MEDS ORDERED: PT OWN MED DRAWER 7, Y5N ONE ×2 (09:06→10:38)
[2020-10-18] MEDS: AMMONIUM LACTATE 12% LOTION 225 GM BOTTLE TP SCH ×2 (10:36→21:25)
[2020-10-18] MEDS: PRENATAL VITAMINS W/ FOLIC ACID TABLET (FP) PO SCH (10:37)
[2020-10-18] MEDS: NICOTINE 21 MG/24 HOURS TOPICAL PATCH TD SCH (10:37)
[2020-10-18] MEDS: SELENIUM SULFIDE 2.5% LOTION 4 OZ. TP SCH (11:00)
[2020-10-18] MEDS: MELATONIN 5 MG TABLETS PO SCH (21:24)
[2020-10-18] MEDS: THIAMINE HCL 100 MG TABLET (FP) PO SCH (21:24)
[2020-10-19] MEDS: PRENATAL VITAMINS W/ FOLIC ACID TABLET (FP) PO SCH (10:30)
[2020-10-19] MEDS: NICOTINE 21 MG/24 HOURS TOPICAL PATCH TD SCH (10:30)
[2020-10-19] MEDS: AMMONIUM LACTATE 12% LOTION 225 GM BOTTLE TP SCH ×2 (10:30→21:06)
[2020-10-19] MEDS: SELENIUM SULFIDE 2.5% LOTION 4 OZ. TP SCH (10:31)
[2020-10-19] MEDS: MELATONIN 5 MG TABLETS PO SCH (21:06)
[2020-10-19] MEDS: THIAMINE HCL 100 MG TABLET (FP) PO SCH (21:06)
[2020-10-20] MEDS: AMMONIUM LACTATE 12% LOTION 225 GM BOTTLE TP SCH ×2 (10:30→21:30)
[2020-10-20] MEDS: PRENATAL VITAMINS W/ FOLIC ACID TABLET (FP) PO SCH (10:30)
[2020-10-20] MEDS: NICOTINE 21 MG/24 HOURS TOPICAL PATCH TD SCH (10:30)
[2020-10-20] MEDS: SELENIUM SULFIDE 2.5% LOTION 4 OZ. TP SCH (10:34)
[2020-10-20] MEDS: MELATONIN 5 MG TABLETS PO SCH (21:30)
[2020-10-20] MEDS: THIAMINE HCL 100 MG TABLET (FP) PO SCH (21:30)
[2020-10-21] MEDS: PRENATAL VITAMINS W/ FOLIC ACID TABLET (FP) PO SCH (10:11)
[2020-10-21] MEDS: NICOTINE 21 MG/24 HOURS TOPICAL PATCH TD SCH (10:11)
[2020-10-21] MEDS: AMMONIUM LACTATE 12% LOTION 225 GM BOTTLE TP SCH ×2 (10:11→21:05)
[2020-10-21] MEDS: SELENIUM SULFIDE 2.5% LOTION 4 OZ. TP SCH (10:12)
[2020-10-21] MEDS: NICOTINE POLACRILEX 2 MG GUM BC PRN (10:12)
[2020-10-21] MEDS: COLLOIDAL OATMEAL 1 BAR EACH TP PRN (10:14)
[2020-10-21 12:52] LABS: HIV INTERPRETATION NEGATIVE (NEGATIVE)
[2020-10-21] MEDS: THIAMINE HCL 100 MG TABLET (FP) PO SCH (21:05)
[2020-10-21] MEDS: MELATONIN 5 MG TABLETS PO SCH (21:05)
[2020-10-22] MEDS: SELENIUM SULFIDE 2.5% LOTION 4 OZ. TP SCH (12:12)
[2020-10-22] MEDS: NICOTINE 21 MG/24 HOURS TOPICAL PATCH TD SCH (12:12)
[2020-10-22] MEDS: PRENATAL VITAMINS W/ FOLIC ACID TABLET (FP) PO SCH (12:12)
[2020-10-22] MEDS: AMMONIUM LACTATE 12% LOTION 225 GM BOTTLE TP SCH ×2 (12:12→21:46)
[2020-10-22] MEDS: THIAMINE HCL 100 MG TABLET (FP) PO SCH (21:46)
[2020-10-22] MEDS: MELATONIN 5 MG TABLETS PO SCH (21:46)
[2020-10-23] MEDS: AMMONIUM LACTATE 12% LOTION 225 GM BOTTLE TP SCH ×2 (10:40→21:06)
[2020-10-23] MEDS: SELENIUM SULFIDE 2.5% LOTION 4 OZ. TP SCH (10:40)
[2020-10-23] MEDS: PRENATAL VITAMINS W/ FOLIC ACID TABLET (FP) PO SCH (10:40)
[2020-10-23] MEDS: NICOTINE 21 MG/24 HOURS TOPICAL PATCH TD SCH (10:40)
[2020-10-23] MEDS: THIAMINE HCL 100 MG TABLET (FP) PO SCH (21:06)
[2020-10-23] MEDS: MELATONIN 5 MG TABLETS PO SCH (21:06)
[2020-10-24] MEDS: PRENATAL VITAMINS W/ FOLIC ACID TABLET (FP) PO SCH (09:59)
[2020-10-24] MEDS: AMMONIUM LACTATE 12% LOTION 225 GM BOTTLE TP SCH ×2 (09:59→21:26)
[2020-10-24] MEDS: SELENIUM SULFIDE 2.5% LOTION 4 OZ. TP SCH (09:59)
[2020-10-24] MEDS: NICOTINE 21 MG/24 HOURS TOPICAL PATCH TD SCH (09:59)
[2020-10-24] MEDS: MELATONIN 5 MG TABLETS PO SCH (21:26)
[2020-10-24] MEDS: THIAMINE HCL 100 MG TABLET (FP) PO SCH (21:26)
[2020-10-25] MEDS: PRENATAL VITAMINS W/ FOLIC ACID TABLET (FP) PO SCH (09:55)
[2020-10-25] MEDS: NICOTINE 21 MG/24 HOURS TOPICAL PATCH TD SCH (09:55)
[2020-10-25] MEDS: COLLOIDAL OATMEAL 1 BAR EACH TP PRN (09:56)
[2020-10-25] MEDS: AMMONIUM LACTATE 12% LOTION 225 GM BOTTLE TP SCH ×2 (09:57→21:11)
[2020-10-25] MEDS ORDERED: PERMETHRIN 5% TOPICAL CREAM 60 GM TUBE TP ONE ×2 (10:47→22:00)
[2020-10-25] MEDS: diphenhydrAMINE HCL 25 MG CAPSULE (FP) PO PRN ×2 (15:03→21:12)
[2020-10-25] MEDS: SUVOREXANT 10 MG TABLET PO PRN (21:08)
[2020-10-25] MEDS: MELATONIN 5 MG TABLETS PO SCH (21:08)
[2020-10-25] MEDS: THIAMINE HCL 100 MG TABLET (FP) PO SCH (21:08)
[2020-10-26] MEDS: NICOTINE 21 MG/24 HOURS TOPICAL PATCH TD SCH (10:13)
[2020-10-26] MEDS: PRENATAL VITAMINS W/ FOLIC ACID TABLET (FP) PO SCH (10:13)
[2020-10-26] MEDS: AMMONIUM LACTATE 12% LOTION 225 GM BOTTLE TP SCH ×2 (10:13→21:41)
[2020-10-26] MEDS: diphenhydrAMINE HCL 25 MG CAPSULE (FP) PO PRN ×2 (10:13→21:41)
[2020-10-26] MEDS: NICOTINE POLACRILEX 2 MG GUM BC PRN (10:15)
[2020-10-26] MEDS: MELATONIN 5 MG TABLETS PO SCH (21:40)
[2020-10-26] MEDS: THIAMINE HCL 100 MG TABLET (FP) PO SCH (21:40)
[2020-10-26] MEDS: SUVOREXANT 10 MG TABLET PO PRN (21:41)
[2020-10-27] MEDS: diphenhydrAMINE HCL 25 MG CAPSULE (FP) PO PRN ×2 (07:22→21:17)
[2020-10-27] MEDS: AMMONIUM LACTATE 12% LOTION 225 GM BOTTLE TP SCH ×2 (10:19→21:18)
[2020-10-27] MEDS: NICOTINE 21 MG/24 HOURS TOPICAL PATCH TD SCH (10:19)
[2020-10-27] MEDS: PRENATAL VITAMINS W/ FOLIC ACID TABLET (FP) PO SCH (10:19)
[2020-10-27] MEDS: MELATONIN 5 MG TABLETS PO SCH (21:15)
[2020-10-27] MEDS: SUVOREXANT 10 MG TABLET PO PRN (21:15)
[2020-10-27] MEDS: THIAMINE HCL 100 MG TABLET (FP) PO SCH (21:15)
[2020-10-27] MEDS: COLLOIDAL OATMEAL 1 BAR EACH TP PRN (21:18)
[2020-10-28] MEDS: NICOTINE 21 MG/24 HOURS TOPICAL PATCH TD SCH (10:16)
[2020-10-28] MEDS: PRENATAL VITAMINS W/ FOLIC ACID TABLET (FP) PO SCH (10:16)
[2020-10-28] MEDS: diphenhydrAMINE HCL 25 MG CAPSULE (FP) PO PRN ×2 (10:17→21:50)
[2020-10-28] MEDS: NICOTINE POLACRILEX 2 MG GUM BC PRN (10:19)
[2020-10-28] MEDS: AMMONIUM LACTATE 12% LOTION 225 GM BOTTLE TP SCH ×2 (10:20→21:50)
[2020-10-28] MEDS: THIAMINE HCL 100 MG TABLET (FP) PO SCH (21:50)
[2020-10-28] MEDS: SUVOREXANT 10 MG TABLET PO PRN (21:50)
[2020-10-28] MEDS: MELATONIN 5 MG TABLETS PO SCH (21:50)
[2020-10-29] MEDS: AMMONIUM LACTATE 12% LOTION 225 GM BOTTLE TP SCH ×2 (10:38→21:30)
[2020-10-29] MEDS: NICOTINE 21 MG/24 HOURS TOPICAL PATCH TD SCH (10:38)
[2020-10-29] MEDS: PRENATAL VITAMINS W/ FOLIC ACID TABLET (FP) PO SCH (10:39)
[2020-10-29] MEDS: COLLOIDAL OATMEAL 1 BAR EACH TP PRN (12:18)
[2020-10-29] MEDS: SUVOREXANT 10 MG TABLET PO PRN (21:29)
[2020-10-29] MEDS: MELATONIN 5 MG TABLETS PO SCH (21:29)
[2020-10-29] MEDS: THIAMINE HCL 100 MG TABLET (FP) PO SCH (21:30)
[2020-10-29] MEDS: diphenhydrAMINE HCL 25 MG CAPSULE (FP) PO PRN (21:30)
[2020-10-30] MEDS: AMMONIUM LACTATE 12% LOTION 225 GM BOTTLE TP SCH ×2 (11:01→21:31)
[2020-10-30] MEDS: NICOTINE 21 MG/24 HOURS TOPICAL PATCH TD SCH (11:02)
[2020-10-30] MEDS: PRENATAL VITAMINS W/ FOLIC ACID TABLET (FP) PO SCH (11:02)
[2020-10-30] MEDS: diphenhydrAMINE HCL 25 MG CAPSULE (FP) PO PRN ×2 (11:03→21:30)
[2020-10-30] MEDS: SELENIUM SULFIDE 2.5% LOTION 4 OZ. TP SCH (15:49)
[2020-10-30] MEDS: SUVOREXANT 10 MG TABLET PO PRN (21:30)
[2020-10-30] MEDS: THIAMINE HCL 100 MG TABLET (FP) PO SCH (21:30)
[2020-10-30] MEDS: MELATONIN 5 MG TABLETS PO SCH (21:30)
[2020-10-31] MEDS: PRENATAL VITAMINS W/ FOLIC ACID TABLET (FP) PO SCH (09:54)
[2020-10-31] MEDS: diphenhydrAMINE HCL 25 MG CAPSULE (FP) PO PRN ×2 (09:54→21:17)
[2020-10-31] MEDS: AMMONIUM LACTATE 12% LOTION 225 GM BOTTLE TP SCH ×2 (09:55→21:19)
[2020-10-31] MEDS: NICOTINE 21 MG/24 HOURS TOPICAL PATCH TD SCH (09:55)
[2020-10-31] MEDS: SELENIUM SULFIDE 2.5% LOTION 4 OZ. TP SCH (09:57)
[2020-10-31] MEDS: MELATONIN 5 MG TABLETS PO SCH (21:15)
[2020-10-31] MEDS: THIAMINE HCL 100 MG TABLET (FP) PO SCH (21:15)
[2020-10-31] MEDS: SUVOREXANT 10 MG TABLET PO PRN (21:17)
[2020-11-01] MEDS: PRENATAL VITAMINS W/ FOLIC ACID TABLET (FP) PO SCH (09:56)
[2020-11-01] MEDS: AMMONIUM LACTATE 12% LOTION 225 GM BOTTLE TP SCH ×2 (09:57→21:24)
[2020-11-01] MEDS: NICOTINE 21 MG/24 HOURS TOPICAL PATCH TD SCH (09:58)
[2020-11-01] MEDS: SELENIUM SULFIDE 2.5% LOTION 4 OZ. TP SCH (09:58)
[2020-11-01] MEDS: NICOTINE POLACRILEX 2 MG GUM BC PRN (09:59)
[2020-11-01] MEDS: THIAMINE HCL 100 MG TABLET (FP) PO SCH (21:24)
[2020-11-01] MEDS: SUVOREXANT 10 MG TABLET PO PRN (21:24)
[2020-11-01] MEDS: MELATONIN 5 MG TABLETS PO SCH (21:24)
[2020-11-01] MEDS: diphenhydrAMINE HCL 25 MG CAPSULE (FP) PO PRN (21:25)
[2020-11-02] MEDS: SELENIUM SULFIDE 2.5% LOTION 4 OZ. TP SCH (10:12)
[2020-11-02] MEDS: PRENATAL VITAMINS W/ FOLIC ACID TABLET (FP) PO SCH (10:12)
[2020-11-02] MEDS: AMMONIUM LACTATE 12% LOTION 225 GM BOTTLE TP SCH ×2 (10:12→21:39)
[2020-11-02] MEDS: NICOTINE 21 MG/24 HOURS TOPICAL PATCH TD SCH (10:13)
[2020-11-02] MEDS: NICOTINE POLACRILEX 2 MG GUM BC PRN ×2 (10:14→21:16)
[2020-11-02] MEDS: COLLOIDAL OATMEAL 1 BAR EACH TP PRN (10:14)
[2020-11-02] MEDS: diphenhydrAMINE HCL 25 MG CAPSULE (FP) PO PRN ×2 (10:14→21:15)
[2020-11-02] MEDS: THIAMINE HCL 100 MG TABLET (FP) PO SCH (21:15)
[2020-11-02] MEDS: MELATONIN 5 MG TABLETS PO SCH (21:15)
[2020-11-02] MEDS: SUVOREXANT 10 MG TABLET PO PRN (21:15)
[2020-11-03] MEDS: NICOTINE 21 MG/24 HOURS TOPICAL PATCH TD SCH (10:02)
[2020-11-03] MEDS: PRENATAL VITAMINS W/ FOLIC ACID TABLET (FP) PO SCH (10:02)
[2020-11-03] MEDS: SELENIUM SULFIDE 2.5% LOTION 4 OZ. TP SCH (10:03)
[2020-11-03] MEDS: AMMONIUM LACTATE 12% LOTION 225 GM BOTTLE TP SCH ×2 (10:03→21:25)
[2020-11-03] MEDS: diphenhydrAMINE HCL 25 MG CAPSULE (FP) PO PRN ×2 (10:04→21:25)
[2020-11-03] MEDS: NICOTINE POLACRILEX 2 MG GUM BC PRN (10:06)
[2020-11-03] MEDS: SUVOREXANT 10 MG TABLET PO PRN (21:25)
[2020-11-03] MEDS: THIAMINE HCL 100 MG TABLET (FP) PO SCH (21:25)
[2020-11-04] MEDS: PRENATAL VITAMINS W/ FOLIC ACID TABLET (FP) PO SCH (10:02)
[2020-11-04] MEDS: NICOTINE POLACRILEX 2 MG GUM BC PRN (10:03)
[2020-11-04] MEDS: NICOTINE 21 MG/24 HOURS TOPICAL PATCH TD SCH (10:03)
[2020-11-04] MEDS: SELENIUM SULFIDE 2.5% LOTION 4 OZ. TP SCH (10:04)
[2020-11-04] MEDS: AMMONIUM LACTATE 12% LOTION 225 GM BOTTLE TP SCH ×2 (10:04→21:44)
[2020-11-04] MEDS: COLLOIDAL OATMEAL 1 BAR EACH TP PRN (10:05)
[2020-11-04] MEDS: diphenhydrAMINE HCL 25 MG CAPSULE (FP) PO PRN ×2 (10:06→21:46)
[2020-11-04] MEDS: THIAMINE HCL 100 MG TABLET (FP) PO SCH (21:46)
[2020-11-04] MEDS: SUVOREXANT 10 MG TABLET PO PRN (21:46)
[2020-11-05 06:54] VITALS: TEMP 97.3
[2020-11-05] MEDS: PRENATAL VITAMINS W/ FOLIC ACID TABLET (FP) PO SCH (10:01)
[2020-11-05] MEDS: NICOTINE 21 MG/24 HOURS TOPICAL PATCH TD SCH (10:02)
[2020-11-05] MEDS: SELENIUM SULFIDE 2.5% LOTION 4 OZ. TP SCH (10:03)
[2020-11-05] MEDS: diphenhydrAMINE HCL 25 MG CAPSULE (FP) PO PRN ×2 (10:03→22:08)
[2020-11-05] MEDS: AMMONIUM LACTATE 12% LOTION 225 GM BOTTLE TP SCH ×2 (10:04→22:08)
[2020-11-05] MEDS ORDERED: SUVOREXANT 10 MG TABLET PO PRN (22:00)
[2020-11-05] MEDS: THIAMINE HCL 100 MG TABLET (FP) PO SCH (22:08)
[2020-11-06 07:07] VITALS: BP 117/79; PULSE 62
[2020-11-06] MEDS: AMMONIUM LACTATE 12% LOTION 225 GM BOTTLE TP SCH (10:14)
[2020-11-06] MEDS: PRENATAL VITAMINS W/ FOLIC ACID TABLET (FP) PO SCH (10:14)
[2020-11-06] MEDS: NICOTINE 21 MG/24 HOURS TOPICAL PATCH TD SCH (10:14)
[2020-11-06] MEDS: SELENIUM SULFIDE 2.5% LOTION 4 OZ. TP SCH (10:15)
== END 2020-11-06 10:22 | disposition home or self-care (01) | DRG 772 ==
LOC: YASAS 09:50 → Y3W 19:47 → Y5N 10-26 14:56
PROVIDERS: ADMIT Allergy & Immunology; ATTEND Allergy & Immunology
PROC: HZ42ZZZ Group Counseling for Substance Abuse Treatment, Cognitive-Behavioral (ICD-10-PCS; principal; 2020-10-14)
DX: F12.20 Cannabis dependence, uncomplicated (principal); F14.10 Cocaine abuse, uncomplicated; F16.10 Hallucinogen abuse, uncomplicated; F17.210 Nicotine dependence, cigarettes, uncomplicated; F19.282 Other psychoactive substance dependence with psychoactive substance-induced sleep disorder; L73.8 Other specified follicular disorders; L29.8 Other pruritus; L25.8 Unspecified contact dermatitis due to other agents
CPT/HCPCS: 36415; 80053; 81003; 85027; 85660; 86780; 87389; C9803; U0003